=== PATIENT | male | born 1985 | race Caucasian/White ===

== ENCOUNTER → 2018-06-16 08:46 | Outpatient (REF) | payer BC, SELFPAY ==
[2018-06-16 13:30] LABS: Cholesterol 258 mg/dL (50-200); Glucose 90 mg/dL (70-100); HDL Cholesterol 36 mg/dL (40-60); LDL CHOLESTEROL 203 mg/dL (<100); Triglyceride 159 mg/dL (30-150)
== END ==
LOC: NCHCN 08:46
PROVIDERS: Visit Provider Nurse Practitioner
DX: E66.9 Obesity, unspecified (principal)
CPT/HCPCS: 80061; 82947; 83721

== ENCOUNTER 2020-03-28 10:08 | Outpatient (CLI) | payer BC, SELFPAY ==
[2020-03-29 23:40] LABS: COVID-19 RT-PCR Result NEGATIVE (Negative)
== END 2020-03-28 10:28 ==
PROVIDERS: Visit Provider Internal Medicine
DX: Z11.59 Encounter for screening for other viral diseases (principal)
CPT/HCPCS: U0003

== ENCOUNTER 2021-05-22 09:58 | Outpatient (REF) | payer BC, SELFPAY ==
[2021-05-23 11:08] LABS: ALT 143 U/L (16-63); AST 66 U/L (15-37); Calculated LDL 173 mg/dL (<100); Cholesterol 251 mg/dL (<200); HDL Cholesterol 35 mg/dL (40-60); Triglyceride 216 mg/dL (<150)
== END 2021-05-22 09:59 | disposition home or self-care (01) ==
LOC: NCHCN 09:58
PROVIDERS: Visit Provider Nurse Practitioner Family
DX: E78.5 Hyperlipidemia, unspecified (principal)
CPT/HCPCS: 80061; 84450; 84460

== ENCOUNTER 2021-09-03 11:53 | Outpatient (REF) | payer BC, SELFPAY ==
[2021-09-05 13:10] LABS: COVID-19 RT-PCR UVMMC Result Positive (Negative)
== END 2021-09-03 11:54 | disposition home or self-care (01) ==
LOC: NCHCN 11:53
PROVIDERS: Visit Provider Nurse Practitioner Family
DX: Z20.822 Contact with and (suspected) exposure to COVID-19 (principal)
CPT/HCPCS: U0003